=== PATIENT | female | born 1970 | race Caucasian/White ===

== ENCOUNTER 2017-01-14 08:11 | Outpatient (CLI) | payer OTHER ==
--- NOTE | 2017-01-14 10:24 | MRI ---
CERVICAL SPINE MRI WITHOUT CONTRAST: Date: 01-14-17 Comparison: None. History: Neck and upper back pain radiating into the left arm, mainly the left 4th and 5th fingers. Cervical radiculopathy. Technique: Multiplanar, multisequence MR imaging of the cervical spine provided without contrast. FINDINGS: There is straightening of the normal cervical lordosis. C2-3: There is fusion at the intervertebral disc level. There is no central canal or neural foraminal stenosis. C3-4: Intervertebral disc height and signal intensity is within normal limits with no significant eduardo tral canal or neural foraminal stenosis. C4-5: There is mild disc bulge with no significant central canal stenosis. No significant neural fora caio stenosis is noted. C5-6: There is disc space narrowing and disc desiccation with disc bulge partially effacing the ventr al thecal sac. No significant central canal stenosis is noted. There is mild right sided neural sana inal stenosis on the basis of facet hypertrophy. There is a small disc protrusion in the right parace ntral region with mild lateral right sided central canal stenosis. C6-7: Intervertebral disc height and signal intensity is within normal limits with no significant eduardo tral canal or neural foraminal stenosis. C7-T1: Intervertebral disc height and signal intensity is within normal limits with no significant ce ntral canal or neural foraminal stenosis. IMPRESSION: Disc space narrowing, disc bulge and small right paracentral disc protrusion at C5-6. No significant central canal or neural foraminal stenosis is noted within the cervical spine. POS: ABHAY
--- NOTE | 2017-01-14 10:26 | MRI ---
MRI LUMBAR SPINE: History: Neck and upper back pain radiating down left arm. Technique: Multiplanar, multisequence noncontrast enhanced MRI images of the thoracic spine obtained. FINDINGS: Images demonstrate the spinal cord to be unremarkable. No evidence of cord abnormality seen. The vert ebral bodies are unremarkable. The neural foramen are patent. No significant evidence of thoracic spi ne abnormality seen. Disc spaces are unremarkable. IMPRESSION: Normal noncontrast enhanced MRI images of the thoracic spine. POS: ABHAY
== END 2017-01-14 08:12 | disposition home or self-care (01) ==
LOC: TBSIIMAG 08:11
PROVIDERS: ATTEND Neurological Surgery
DX: M50.122 Cervical disc disorder at C5-C6 level with radiculopathy (principal); M54.6 Pain in thoracic spine; M48.02 Spinal stenosis, cervical region
CPT/HCPCS: 72141; 72146

== ENCOUNTER 2018-06-25 15:07 | Outpatient (CLI) | payer OTHER ==
--- NOTE | 2018-06-25 15:56 | RAD ---
THREE VIEWS CERVICAL SPINE 06/25/18 HISTORY: Cervical radicular pain. AP, lateral and open mouth odontoid views cervical spine obtained. Three views cervical spine demonstrate C4-5 disc space height loss and anterior and posterior osteoph ytes compatible with C4-5 changes of spondylosis. IMPRESSION: C4-5 changes of spondylosis. POS: C
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
== END 2018-06-25 15:08 | disposition home or self-care (01) ==
LOC: TBSIIMAG 15:07
PROVIDERS: ATTEND Specialist
DX: M47.22 Other spondylosis with radiculopathy, cervical region (principal); M50.122 Cervical disc disorder at C5-C6 level with radiculopathy; M25.78 Osteophyte, vertebrae; M48.02 Spinal stenosis, cervical region
CPT/HCPCS: 72050; 72141